=== PATIENT | male | born 1985 | race Hispanic/Latino ===

== ENCOUNTER 2018-05-12 09:33 | Emergency (ER) | payer SELFPAY ==
[2018-05-12 09:33] VITALS: BMI 27.3
[2018-05-12 09:45] VITALS: BP 146/88; PULSE 100; RESP 18; TEMP 97.5
[2018-05-12 10:34] VITALS: O2SAT 99
== END 2018-05-12 10:34 | disposition left against medical advice (07) ==
LOC: H.ER 09:33
DX: Z02.89 Encounter for other administrative examinations (principal)

== ENCOUNTER 2018-05-12 19:23 | Emergency (ER) | payer MEDICAID ==
[2018-05-12 19:23] VITALS: BMI 27.3
[2018-05-12 19:48] VITALS: BP 145/83; PULSE 91; RESP 16; TEMP 97.8; O2SAT 98
--- NOTE | 2018-05-12 20:59 | ED PDOC ---
HPI: Psych/Substance Abuse Time Seen by Provider: 05/12/18 19:59 Chief Complaint (Nursing): Psychiatric Evaluation Chief Complaint (Provider): Psychiatric Evaluation History Per: Patient History/Exam Limitations: no limitations Onset/Duration Of Symptoms: Days Current Symptoms Are (Timing): Still Present Suicide/Self Injury Attempted (Context): None Modifying Factor(s): None Severity: None Associated Symptoms: denies: Depression, Suicidal Thoughts, Suicidal Plan Involuntary Hold By: None Additional Complaint(s): 32 year old male with no medical history presents to the ED with no complaints. Patient reports he has been undomiciled since his grandmother evicted him. He has registered in this ED three times today without being seen, prior to this current visit. He is well kempt and has no medical or psychiatric complaints. Denies HI, SI, and auditory or visual hallucinations. PMD: none provided Past Medical History Reviewed: Historical Data, Nursing Documentation, Vital Signs Vital Signs: Last Vital Signs Temp 97.8 F 05/12/18 19:45 Pulse 91 H 05/12/18 19:45 Resp 16 05/12/18 19:45 BP 145/83 05/12/18 19:45 Pulse Ox 98 05/12/18 19:45 - Medical History PMH: No Chronic Diseases - Surgical History Surgical History: Appendectomy - Family History Family History: States: Unknown Family Hx - Living Arrangements Living Arrangements: Other (undomiciled) - Social History Current smoker - smoking cessation education provided: Yes - Allergies Allergies/Adverse Reactions: Allergies Allergy/AdvReac Type Severity Reaction Status Date / Time amoxicillin Allergy RASH Verified 05/12/18 19:45 Penicillins Allergy RASH Verified 05/12/18 19:45 Review of Systems ROS Statement: Except As Marked, All Systems Reviewed And Found Negative Physical Exam - Reviewed Nursing Documentation Reviewed: Yes Vital Signs Reviewed: Yes - Physical Exam Appears: Positive for: Well, Non-toxic, No Acute Distress Head Exam: Positive for: ATRAUMATIC, NORMAL INSPECTION, NORMOCEPHALIC Skin: Positive for: Normal Color, Warm, Dry. Negative for: Rash Eye Exam: Positive for: EOMI, Normal appearance, PERRL Neck: Positive for: Normal, Painless ROM, Supple Cardiovascular/Chest: Positive for: Regular Rate, Rhythm. Negative for: Murmur Respiratory: Positive for: Normal Breath Sounds. Negative for: Respiratory Distress Extremity: Positive for: Normal ROM (x 4). Negative for: Deformity Neurological/Psych: Positive for: Awake, Alert, Normal Tone, Oriented (x 3). Negative for: Motor/Sensory Deficits - ECG O2 Sat by Pulse Oximetry: 98 (RA) Pulse Ox Interpretation: Normal Medical Decision Making Medical Decision Makin:02 Impression: 32 year old undomiciled male requesting assistance with housing Plan: --Crisis evaluation 20:17 Patient decided to leave the ED before he was evaluated by crisis. Diagnosis is homeless male. Scribe Attestation: Documented by Tierra Mcgee, acting as a scribe for Ravi Dominguez MD Provider Scribe Attestation: All medical record entries made by the Scribe were at my direction and pers onally dictated by me. I have reviewed the chart and agree that the record accurately reflects my personal performance of the history, physical exam, medical decision making, and the department course for this patient. I have also personally directed, reviewed, and agree with the discharge instructions and disposition. Disposition - Clinical Impression Clinical Impression: Eloped from emergency department, Homeless single person - Patient ED Disposition Is Patient to be Admitted: No - Disposition Disposition: Left W/O Treatment Disposition Time: 20:17 Condition: STABLE Forms: [employer] ([place])
== END 2018-05-12 20:34 | disposition left against medical advice (07) ==
LOC: H.ER 19:23
DX: Z59.0 Homelessness (principal); F17.200 Nicotine dependence, unspecified, uncomplicated; Z88.0 Allergy status to penicillin

== ENCOUNTER 2018-05-13 02:38 | Emergency (ER) | payer MEDICAID ==
[2018-05-13 02:38] VITALS: BMI 27.3
[2018-05-13 02:48] VITALS: O2SAT 98
[2018-05-13 03:16] VITALS: RESP 18
--- NOTE | 2018-05-13 03:37 | ED PDOC ---
HPI: General Adult Time Seen by Provider: 05/13/18 02:42 Chief Complaint (Nursing): Medical Clearance Chief Complaint (Provider): Medical Clearance History Per: Patient Additional Complaint(s): 32 undomiciled y/o male with no medical history presents to the ED in police custody for medical clearance. Patient has no medical psych complaints. Past Medical History Reviewed: Historical Data, Nursing Documentation, Vital Signs Vital Signs: Last Vital Signs Temp 98.6 F 05/13/18 02:44 Pulse 97 H 05/13/18 03:16 Resp 18 05/13/18 03:16 BP 137/80 05/13/18 02:44 Pulse Ox 98 05/13/18 03:16 GILBERT Report Viewed: Yes - Medical History PMH: No Chronic Diseases - Surgical History Surgical History: Appendectomy - Family History Family History: States: Unknown Family Hx - Social History Current smoker - smoking cessation education provided: Yes - Allergies Allergies/Adverse Reactions: Allergies Allergy/AdvReac Type Severity Reaction Status Date / Time amoxicillin Allergy RASH Verified 05/13/18 02:44 Penicillins Allergy RASH Verified 05/13/18 02:44 Review of Systems ROS Statement: Except As Marked, All Systems Reviewed And Found Negative Physical Exam - Reviewed Nursing Documentation Reviewed: Yes Vital Signs Reviewed: Yes - Physical Exam Appears: Positive for: Non-toxic, No Acute Distress Head Exam: Positive for: ATRAUMATIC (contusion on forehead), NORMAL INSPECTION, NORMOCEPHALIC Skin: Positive for: Normal Color, Warm, Dry Eye Exam: Positive for: EOMI, Normal appearance, PERRL ENT: Positive for: Normal ENT Inspection Neck: Positive for: Normal, Painless ROM Cardiovascular/Chest: Positive for: Regular Rate, Rhythm. Negative for: Murmur Respiratory: Positive for: CNT, Normal Breath Sounds Gastrointestinal/Abdominal: Positive for: Normal Exam, Soft Back: Positive for: Normal Inspection Extremity: Positive for: Normal ROM Neurological/Psych: Positive for: Awake, Alert, Normal Tone - ECG O2 Sat by Pulse Oximetry: 98 Medical Decision Making Medical Decision Makin:56 impression: 32 y/o male presents due to medical clearence. initial plan: --CT Head w/out contrast 04:35 CT SCAN OF THE BRAIN WITHOUT IV CONTRAST CLINICAL INDICATION: Injury. TECHNIQUE: Axial and reformatted coronal images of the brain obtained without IV contrast administration. Normal size of the ventricles and extra-axial spaces for the patient's age. Normal white matter tracts of the supratentorial brain. Normal basal ganglia and thalami. Normal brainstem. Normal cerebellum. There is no demonstrated extra-axial, intraparenchymal, or intraventricular hemorrhage. There are no findings of an acute ischemic infarction. Normal calvarium. There is no demonstrated fracture. Normal soft tissue structures. Normal visualized paranasal sinuses. IMPRESSION: Normal unenhanced CT scan of the brain. 04:44 Patient is medically cleared for incarceration. Patient is stable for discharge to the [facility]. Scribe Attestation: Documented by Tierra Mcgee, acting as a scribe Carlos Alberto Dominguez MD Provider Scribe Attestation: All medical record entries made by the Scribe were at my direction and personally dictated by me. I have reviewed the chart and agree that the record accurately reflects my personal performance of the history, physical exam, medical decision making, and the department course for this patient. I have also personally directed, reviewed, and agree with the discharge instructions and disposition Disposition - Clinical Impression Clinical Impression: Head injury - Patient ED Disposition Is Patient to be Admitted: No - Disposition Disposition: Discharged/Transfer to Law Enforcement ([facility]) Disposition Time: 04:45 Condition: STABLE Additional Instructions: Patient is medically and psychiatrically stable for incarceration Instructions: Minor Head Injury, General (DC) Forms: [employer] ([place])
[2018-05-13 04:52] VITALS: BP 132/71; PULSE 93; TEMP 98.3
--- NOTE | 2018-05-13 07:34 | CT ---
Date of service: 05/13/2018 PROCEDURE: CT HEAD WITHOUT CONTRAST. HISTORY: head injury COMPARISON: None available. TECHNIQUE: Axial computed tomography images were obtained through the head/brain without intravenous contrast. Radiation dose: Total exam DLP = 1022.51 mGy-cm. This CT exam was performed using one or more of the following dose reduction techniques: Automated exposure control, adjustment of the mA and/or kV according to patient size, and/or use of iterative reconstruction technique. FINDINGS: HEMORRHAGE: No intracranial hemorrhage. BRAIN: Normal domingo-white matter differentiation and density are appreciated throughout the cerebrum and cerebellum with the brainstem appearing unremarkable as well. There is no mass effect. There is no suspicious extra-axial fluid collection and the midline brain anatomy appears diffusely unremarkable. VENTRICLES: Unremarkable. No hydrocephalus. CALVARIUM: Unremarkable. PARANASAL SINUSES: Unremarkable as visualized. No significant inflammatory changes. MASTOID AIR CELLS: Unremarkable as visualized. No inflammatory changes. However, there is soft tissue at the right external auditory canal likely reflective of cerumen. Clinically correlate further. OTHER FINDINGS: None. IMPRESSION: No acute intracranial findings. Probable cerumen incidentally noted at the right external auditory canal. Clinically correlate. Preliminary report provided by [place], 05/13/2018, 4:35 a.m..
== END 2018-05-13 04:40 ==
LOC: H.ER 02:38
DX: S09.90XA Unspecified injury of head, initial encounter (principal); X58.XXXA Exposure to other specified factors, initial encounter; Y92.89 Other specified places as the place of occurrence of the external cause; F17.200 Nicotine dependence, unspecified, uncomplicated; Z88.0 Allergy status to penicillin

== ENCOUNTER 2018-05-13 10:44 | Emergency (ER) | payer SELFPAY ==
[2018-05-13 10:46] VITALS: BMI 22.8
[2018-05-13 10:48] VITALS: BP 145/91; PULSE 101; RESP 16; TEMP 97.3; O2SAT 98
--- NOTE | 2018-05-13 13:24 | ED PDOC ---
HPI: Influenza Time Seen by Provider: 05/13/18 11:14 Chief Complaint: Cough, Cold, Congestion History Per: Patient Additional complaint(s):: Pt. states for the past week he's had nasal congestion without facial pain, cough, or fever. Denies chest pain, SOB, hemoptysis, fever, chills, sick contacts, recent travel. Past Medical History Reviewed: Historical Data, Nursing Documentation, Vital Signs Vital Signs: Last Vital Signs Temp 97.3 F L 05/13/18 10:46 Pulse 101 H 05/13/18 10:46 Resp 16 05/13/18 10:46 BP 145/91 H 05/13/18 10:46 Pulse Ox 98 05/13/18 10:46 - Medical History PMH: Denies: Diabetes, Hepatitis, HIV, HTN, Seizures, Sexually Transmitted Disease - Surgical History Surgical History: Appendectomy - Family History Family History: States: No Known Family Hx - Immunization History Hx Tetanus Toxoid Vaccination: No Hx Influenza Vaccination: No Hx Pneumococcal Vaccination: No - Allergies Allergies/Adverse Reactions: Allergies Allergy/AdvReac Type Severity Reaction Status Date / Time amoxicillin Allergy RASH Verified 05/13/18 11:29 Penicillins Allergy RASH Verified 05/13/18 11:29 Review of Systems ROS Statement: Except As Marked, All Systems Reviewed And Found Negative ENT: Positive for: Nose Congestion Respiratory: Positive for: Cough Physical Exam - Physical Exam Appears: Positive for: Well, Non-toxic, No Acute Distress Skin: Positive for: Normal Color, Warm. Negative for: Rash Eye Exam: Positive for: Normal appearance ENT: Positive for: Normal ENT Inspection. Negative for: Sinus Pain/Drainage Neck: Positive for: Normal, Painless ROM, Supple Cardiovascular/Chest: Positive for: Regular Rate, Rhythm. Negative for: Tachycardia Respiratory: Positive for: Normal Breath Sounds Neurological/Psych: Positive for: Awake, Alert, Oriented (x3). Negative for: Facial Droop Medical Decision Making Medical Decision Making: Advised to use OTC cold meds but is to return to ED immediately if symptoms worsen. - ECG O2 Sat by Pulse Oximetry: 98 Disposition - Clinical Impression Clinical Impression: Upper respiratory infection - Patient ED Disposition Is Patient to be Admitted: No - Disposition Referrals: [facility] [Outside] Disposition: Routine/Home Disposition Time: 11:00 Condition: STABLE Additional Instructions: FOLLOW UP WITH YOUR DOCTOR FOR FURTHER EVALUATION RETURN TO ED IMMEDIATELY FOR FURTHER EVALUATION DEVENDRA VERDE, thank you for letting us take care of you today. Your provider was Ashley Og MD and you were treated for GENERAL WEAKNESS. The emergency medical care you received today was directed at your acute symptoms. If you were prescribed any medication, please fill it and take as directed. It may take several days for your symptoms to resolve. Return to the Emergency Department if your symptoms worsen, do not improve, or if you have any other pro blems. Please contact your doctor or call one of the physicians/clinics you have been referred to that are listed on the Patient Visit Information form that is included in your discharge packet. Bring any paperwork you were given at discharge with you along with any medications you are taking to your follow up visit. Our treatment cannot replace ongoing medical care by a primary care provider outside of the emergency department. Thank you for allowing the [facility] team to be part of your care today. If you had an X-Ray or CT scan: A Radiologist will review the ED reading if any change in treatment is needed we will contact you. If you had a blood, urine, or wound culture: It will take several days for the results, if any change in treatment is needed we will contact you. If you had an STI test: It will take 48 hours for the results. Please call after 1 week if you have not heard back. Instructions: Cough, Runny Nose, and the Common Cold (DC) Forms: [employer] ([place])
== END 2018-05-13 13:30 | disposition home or self-care (01) ==
LOC: H.ER 10:44
DX: J06.9 Acute upper respiratory infection, unspecified (principal); Z88.0 Allergy status to penicillin